=== PATIENT | male | born 1985 | race Caucasian/White ===

== ENCOUNTER 2020-07-30 08:53 | Emergency (ER) | payer OTHER, SELFPAY ==
[2020-07-30 08:59] VITALS: BP 113/74; PULSE 78; RESP 16; TEMP 36.7; O2SAT 99
--- NOTE | 2020-07-30 09:11 | ED.GENADUL_ITS ---
Discharge Plan Disposition Patient Disposition: HOME Condition: Stable Discharge Details Chief Complaint: Abd Prob Clinical Impression: Diarrhea ED Provider: Jose Alfredo Tovar Home Meds and New Rx's Prescriptions: No Action No Known Home Meds RF: 0 Discharge Instructions Instructions: Acute Diarrhea (ED) Additional Instructions: your symptoms are likely due to a virus that should resolve in a few days if symptoms continue in a week follow up with your primary care provider, and I placed you on our follow up list to get established with a primary care provider if worsening pain, you feel more ill or have persistent vomit return to the emergency department Stand Alone Forms: Work Release Medical Decision Making 35 yo male with no chronic medical problems comes in with chief complaint of diarrhea since yesterday. Had some lower abdomen cramping yesterday none now. Denies travel, fevers, n/v, sharp abdomen pain. States he had giardia a year ago but no known fresh water exposures recently. He is in no distress and appears well systemically. He has no tenderness even with deep palpation on exam. Symptoms consistent with likely viral infectious diarrhea vs food illness and expect it to pass within a few days. Will send him home with stool collection kit for bacterial pathogen pcr. No recent antibiotics or other risks for c diff. Given lack of tenderness doubt etiologies such pancreatitis, hepatitis, appendicitis or other surgical pathology so do not feel any labs or imaging indicated. Will d/c and advised to f/u with pcp or urgent care if symptoms continue and if worsening return to the emergency department Differential Diagnosis Differential Diagnosis: infectious diarrhea, food related illness HPI General Mode of arrival: ambulatory . Date/Time Provider Initiated Documentation: 07/30/20 08:54 . Limitations to Documentation: no limitations . Information obtained by: patient . History of Present Illness 35 year old M presents to the emergency department with the chief complaint of diarrhea, described as mild, and it has been constant. No relieving factors improve symptom(s), No exacerbating factors reported . Patient notes denies nausea/vomiting. Patient did receive the following treatments prior to arrival, none Related Data Home Medications Medication Instructions Recorded Confirmed Unknown [No Known Home Meds] 07/30/20 07/30/20 Allergies Allergy/AdvReac Type Severity Reaction Status Date / Time No Known Allergies Allergy Unverified 07/30/20 09:02 General Stated Complaint: Abd Prob AGUEDA: 3 Review of Systems All systems reviewed & are unremarkable except as noted in HPI and below Constitutional Constitutional: Denies chills, Denies fever(s) and Denies weakness Cardiovascular Cardiovascular: Denies chest pain and Denies dyspnea Respiratory Respiratory: Denies cough and Denies dyspnea Gastrointestinal Gastrointestinal: Denies nausea and Denies vomiting Musculoskeletal Musculoskeletal: Denies joint swelling Integumentary/Breasts Skin/Breast: Denies rash Neurologic Neurologic: Denies weakness PFSH Social History Smoking/Tobacco Use Status: Current every day Tobacco Type: cigarettes Smoking risk assessment performed?: Yes Alcohol Intake: current Substance use type: marijuana Do you feel safe at home: Yes Exam Const General: no acute distress Orientation: alert HENMT Head: normal to inspection Ears: external ears normal General nose exam: external nose normal Mouth: moist mucous membranes Eyes General: appearance normal, both eyes and all related structures Neck Neck: normal visual inspection Resp Effort & Inspection: normal respiratory effort and able to speak in complete sentences Cardio Rate: regular rate GI Palpation: soft and nontender Skin General skin exam: no rashes or lesions noted Neuro General: patient alert and patient oriented x3 Extrem General: normal to inspection Psych Mental Status: mental status grossly normal Course Vital Signs Vital signs: Vital Signs Temperature 36.7 C 07/30/20 08:59 Pulse 78 07/30/20 08:59 Respiratory Rate 16 07/30/20 08:59 Blood Pressure 113/74 07/30/20 08:59 Pulse Oximetry 99 07/30/20 08:59 Temperature 36.7 C 07/30/20 08:59 Temperature Source Skin 07/30/20 08:59 Pulse 78 07/30/20 08:59 Respiratory Rate 16 07/30/20 08:59 Respiratory Effort Non-Labored 07/30/20 09:02 Blood Pressure 113/74 07/30/20 08:59 Blood Pressure Position Sitting 07/30/20 08:59 Pulse Oximetry 99 07/30/20 08:59 Oxygen Delivery Method Room Air 07/30/20 08:59 Oxygen Flow Rate 0 07/30/20 08:59 Pain Level 2 07/30/20 08:59
--- NOTE | 2020-07-30 10:52 | NUR.NOTE ---
Nursing Note: Referral to establish care with a PCP was given to Care Management. Zulay Cain
--- NOTE | 2020-07-31 10:17 | PDOC.ERCMPRO ---
- If Service Date Differs Date of service: 07/31/20 Time of Service: 10:17 Care Management Progress Note Sea is seen in the ED for abdominal pain. At the request of ED provider, ENE coordinates a referral to Gela Carter NP, of [facility], on-call provider, to assist Sea in obtaining a follow up appointment and in establishing care with a PCP. Sea is also referred to the [employer] for assistance in exploring health insurance options.
== END 2020-07-30 09:27 | disposition home or self-care (01) ==
LOC: ER 10:48
PROVIDERS: Emergency Provider Emergency Medicine
DX: R19.7 Diarrhea, unspecified (principal)
CPT/HCPCS: 99282